=== PATIENT | male | born 1955 | race Two or more races ===

== ENCOUNTER → 2023-07-26 08:52 | Outpatient (REF) | payer MEDICARE, OTHER, SELFPAY | LOC: RCS 08:52 | PROVIDERS: ATTENDING PHYSICIAN Nuclear Medicine Nuclear Cardiology; FAMILY PHYSICIAN Family Medicine | DX: I10 Essential (primary) hypertension (principal); I42.8 Other cardiomyopathies | CPT/HCPCS: 93306 ==

== ENCOUNTER 2024-02-07 10:38 | Emergency (ER) | payer MEDICARE, OTHER, SELFPAY ==
[2024-02-07 10:47] VITALS: BP 168/81
[2024-02-07 10:54] LABS: Glucose - Point of Care 100 mg/dl (70-99)
[2024-02-07 11:06] VITALS: BP 149/98
--- NOTE | 2024-02-07 11:11 | ED.CVA ---
History of Present Illness
General
Chief Complaint: CVA/TIA Symptoms
Source: patient and spouse
Time Seen by Provider: 02/07/24 11:00
Onset of Stroke Symptoms
Onset of symptoms known: Yes
Date of onset of symptoms: 02/07/24
Time of onset of symptoms: 08:00
History of Present Illness
History of Present Illness:
This patient is a 68-year-old male was feeling his usual self when he woke up this morning. He describes taking a 'little pill' before having intercourse. Shortly after, at approximately 8 AM, his noted that he seemed to be forgetful for
recent events. For example, he did not remember was Lindsey, why their son's dog was there, why there were folded close on the bed, why they needed to bring shrimp cocktail to the green party today, etc. There was no noted change in speech or balance.
Now, symptoms are fully resolved. His only noted complaint/finding is that his face is a little warm. He denies dizziness/vertigo, chest pain or pressure, dyspnea, headache, nausea, vomiting, diplopia, change in vision, change in speech,
numbness, tingling, focal weakness, clumsiness, or other complaints.
Past History
Past History
ED Past Medical History: Psychiatric and Other (Cardiomyopathy, CHF, hypertension, A-fib, hyperlipidemia)
Social History
Tobacco: Non-smoker
Alcohol: Daily
Drug: None
Personal:
Living: with family
Phy Exam
Physical Exam
Physical Exam:
GENERAL: Alert , in no apparent distress
EYE: pupils equal and reactive, no photophobia, EOMI, no nystagmus
NECK: Supple, no significant adenopathy.
ENT: o/p clr, mmm.
CARDIAC: Regular rate and rhythm .
LUNGS: Clear breath sounds bilaterally, no acute respiratory distress, no wheezes/rales/rhonchi
ABDOMEN: Soft, without focal tenderness, no r/g, no cvat
NEUROLOGICAL: Alert and oriented, no focal neuro deficits, NIH equal to 0, [id number] normal, motor 5 out of 5, cranial nerves II through XII intact, sensation intact
SKIN: Warm and dry, skin intact.
MUSCULOSKELETAL: No edema, well perfused.
PSYCH: Normal and appropriate interaction.
Course
Orders/Labs/Results
Orders:
Orders
02/07/24 11:10
Electrocardiogram (*1) Urgent
Reason for Study: Other
Other Reason for Exam: stroke symptoms
CT Head W/o Iv Contrast Urgent
Comment:
Reason For Exam: amnesia
Cardiac Monitoring- Treatment ONCE
EKG- Treatment ONCE
02/07/24 11:12
Complete Blood Count/No Diff Urgent
Comprehensive Metabolic Panel Urgent
Abnormal Lab Results
02/07/24 02/07/24
10:53 11:12
MCH 31.6 H pg
(27.0-31.0)
Glucose 111 H mg/dl
(70-99)
POC Glucose 100 H mg/dl
(70-99)
02/07/24 11:12
02/07/24 11:12
Vital Signs
Initial and Last Documented VS:
Initial Vital Signs
Temp Pulse Resp BP Pulse Ox
97.7 F 56 18 168/81 99
02/07/24 10:47 02/07/24 10:47 02/07/24 10:47 02/07/24 10:47 02/07/24 10:47
Last Documented Vital Signs
Temp Pulse Resp BP Pulse Ox
97.7 F 55 20 149/98 96
02/07/24 10:47 02/07/24 11:15 02/07/24 11:15 02/07/24 11:06 02/07/24 11:15
*Critical Care Note
Total Time (30-74mins, 75-104mins- exclusive of procedures): Not Applicable
Update Note
Update Note:
Patient presents to the Emergency Department with ___amnesia
Number and Complexity of Problems Addressed at the Encounter
� Chronic conditions affecting care:
� Acute Exacerbation and/or Progression of Chronic Illness:
� Differential Diagnosis includes: But not limited to TGA, TIA, CVA, etc.
Amount and/or Complexity of Data to be Reviewed and Analyzed
� I performed an independent evaluation of and my interpretation is:
EKG:read by me, sinus bradycardia, no acute ischemia
CT:read by xiang mcelroy
Xrays:
Laboratory Studies:generally unremarkable
Other:
� Review of other/old records reveals: Echo reportNormal left ventricular size and normal systolic function. No regional wall
motion abnormalities are seen. LV ejection fraction is 50 to 55% visually. Mild
left ventricular hypertrophy. Normal diastolic function.
Mildly dilated left atrium.
Since echocardiogram May 2022, there is no significant change
� Clinical information was obtained by an independent historian: who is bedside
� Prescriptions/Medications Considered but not given:
� Further testing considered but not performed:
Risk of Complications and/or Morbidity or Mortality of Patient Management
� Social determinants of health affecting care:
� Discussion with other providers (PCP, Hospitalists, Consultants, etc):
� Escalation of care including admission/observation vs risk of discharge considered:
1226 pm pt remains asx, at baseline, no neuro sxs, no amnesia. S/sxs very suggestive of TGA, and viagra in 'post marketing' reports describe events of TGA associated with use. Hihgly doubt tia/cva...while he does have some risk factors, far less
likely given timing with meds, nl neuro exam,e tc. Case d/w neuro (Yanet) who agrees and recommend lipid panel before d/c.
ED Attending Note
-
Portions of this chart may have been created with voice recognition software.� Occasional wrong word or��sound alike� substitutions may have occurred due to the inherent limitations of voice recognition software.
Discharge Plan
Departure
Patient Disposition: Home (Routine Discharge)
Date of Disposition: 02/07/24
Time of Disposition: 12:28
Patient with high blood pressure during this ER visit?: Yes
Condition: Good
Discharge Problem:
TGA (transient global amnesia)
Instructions: Amnesia, BLOOD PRESSURE
Prescriptions:
No Action
celecoxib [Celebrex] 200 mg Capsule
200 mg PO PRN PRN (Reason: pain)
tramadol 50 mg Tablet
50 mg PO PRN PRN (Reason: pain)
Eliquis 5 mg Tablet
5 mg PO BID Qty: 0 0RF
Rx Instructions:
Restart today- one time dose at 4:30pm, then resume regular schedule on 12/09 in AM
Activity Restrictions/Additional Instructions:
PLEASE SEE YOUR DOCTOR IN CLOSE FOLLOW UP WITHIN A WEEK. IF YOU DEVELOP NUMBNESS, WEAKNESS, CHANGE IN VISION/SPEECH/BALANCE, DEVELOP AMNESIA, OR OTHER WORRISOME SIGNS, GO TO THE ER IMMEDIATELY!
Interventions
Interventions:
*Risk Screen - Suicide Last Done: 02/07/24 11:07
*General Assessment Last Done: 02/07/24 11:07
*Neglect/Abuse Screening Last Done: 02/07/24 11:07
ED- Fall Risk Assessment Last Done: 02/07/24 11:07
*ED COVID-19 Vaccine History Last Done: 02/07/24 11:07
ED- Pulmonary Assessment Last Done: 02/07/24 11:07
ED- Neurological Assessment Last Done: 02/07/24 11:07
ED- Cardiac Assessment Last Done: 02/07/24 11:07
ED Swallowing Screen Last Done: 02/07/24 11:07
Discharge Date and Time
Print Language: MONGOLIAN
[2024-02-07 11:21] LABS: Hematocrit 43.9 % (39.0-52.0); Mean Corp Hgb Conc. 34.2 g/dL (33.0-37.0); Mean Corpuscular Hgb 31.6 pg (27.0-31.0); Mean Corpuscular Volume 92.4 fL (80.0-94.0); Platelet Count 258 10^3/uL (130-400); Red Blood Cell Count 4.75 10^6/uL (4.70-6.10); Red Cell Dist. Width 13.5 % (11.5-14.5); White Blood Cell Count 8.4 10^3/uL (4.8-10.8)
[2024-02-07 11:55] LABS: ALT (SGPT) 26 U/L (0-50); AST (SGOT) 29 U/L (17-59); Albumin 4.4 g/dl (3.5-5.0); Alkaline Phosphatase 94 U/L (38-126); Blood Urea Nitrogen 18 mg/dl (9-20); Calcium 9.2 mg/dl (8.4-10.2); Carbon Dioxide 26 mmol/L (22-30); Chloride 103 mmol/L (98-107); Glucose 111 mg/dl (70-99); Potassium 4.5 mmol/L (3.5-5.1); Sodium 137 mmol/L (135-145); Total Bilirubin 1.1 mg/dl (0.2-1.3); eGFR > 60.00
[2024-02-07 12:45] LABS: HDL Cholesterol 97 mg/dl; LDL Cholesterol, Calculated 82 mg/dl; Total Cholesterol 188 mg/dl (50-199); Triglyceride 48 mg/dl (10-149); Very Low Density Lipoprotein 9 mg/dl (0-30)
== END 2024-02-07 12:50 | disposition home or self-care (01) ==
LOC: EMR 10:38
PROVIDERS: EMERGENCY PHYSICIAN Emergency Medicine; FAMILY PHYSICIAN Family Medicine
DX: G45.4 Transient global amnesia (principal); I42.9 Cardiomyopathy, unspecified; I11.0 Hypertensive heart disease with heart failure; I50.9 Heart failure, unspecified; I48.91 Unspecified atrial fibrillation; E78.00 Pure hypercholesterolemia, unspecified
CPT/HCPCS: 99284; 70450; 80053; 80061; 82962; 85027; 93005

== ENCOUNTER → 2024-07-25 16:54 | Outpatient (REF) | payer MEDICARE, OTHER, SELFPAY | LOC: RAD 16:54 | PROVIDERS: ATTENDING PHYSICIAN Family Medicine; FAMILY PHYSICIAN Family Medicine | DX: J18.9 Pneumonia, unspecified organism (principal) | CPT/HCPCS: 71046 ==

== ENCOUNTER 2024-08-21 11:23 | Day surgery (SDC) | payer MEDICARE, OTHER, SELFPAY ==
--- NOTE | 2024-08-21 13:48 | ITS.CL.CARDI ---
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
Cardioversion
Procedure Report:
Cardioversion Report:
Date of Procedure: 08/21/2024
Procedure: Cardioversion
Indication: Symptomatic atrial flutter
Performing Physician: Geovanny Cardenas MD
Technique: The patient was brought to the holding area. Signed informed consent was obtained. A time out was called and performed. The patient was anesthetized by the anesthesia service. Anticoagulation status was reviewed and appropriate. R2 pads
were placed anteriorly and posteriorly. A 50 J synchronized biphasic shock was given and patient went into atrial fibrillation. Then had 200 J biphasic shock and converted to sinus rhythm.. There were no complications.
Conclusion: Uncomplicated cardioversion from atrial flutter to sinus rhythm.
Recommendation: Routine post cardioversion care. Continue jail anticoagulation.
== END 2024-08-21 14:00 | disposition home or self-care (01) ==
LOC: CATH 11:23
PROVIDERS: ATTENDING PHYSICIAN Internal Medicine Cardiovascular Disease; FAMILY PHYSICIAN Family Medicine; REFERRING PHYSICIAN Nuclear Medicine Nuclear Cardiology
DX: I48.92 Unspecified atrial flutter (principal); I48.91 Unspecified atrial fibrillation; I10 Essential (primary) hypertension; E78.2 Mixed hyperlipidemia; Z79.01 Long term (current) use of anticoagulants; Z85.828 Personal history of other malignant neoplasm of skin
CPT/HCPCS: 92960; 93005

== ENCOUNTER → 2024-09-24 07:00 | Outpatient (REF) | payer MEDICARE, OTHER, SELFPAY | LOC: RCS 07:00 | PROVIDERS: ATTENDING PHYSICIAN Nuclear Medicine Nuclear Cardiology; FAMILY PHYSICIAN Family Medicine | DX: I10 Essential (primary) hypertension (principal); I48.4 Atypical atrial flutter | CPT/HCPCS: 93306 ==

== ENCOUNTER → 2025-01-15 08:38 | Outpatient (REF) | payer MEDICARE, OTHER, SELFPAY ==
[2025-01-15 09:13] LABS: Hematocrit 46.4 % (39.0-52.0); Hemoglobin 15.6 g/dL (13.0-18.0); Mean Corp Hgb Conc. 33.6 g/dL (33.0-37.0); Mean Corpuscular Volume 93.9 fL (80.0-94.0); Nucleated Red Blood Cells % 0 % (-); Platelet Count 318 10^3/uL (130-400); Red Cell Dist. Width 12.9 % (11.5-14.5)
[2025-01-15 09:28] LABS: INR 1.07; PT 13.7 Sec (11.4-14.6)
[2025-01-15 09:29] LABS: ALT (SGPT) 29 U/L (0-50); AST (SGOT) 25 U/L (17-59); Albumin 4.8 g/dl (3.5-5.0); Alkaline Phosphatase 95 U/L (38-126); Blood Urea Nitrogen 18 mg/dl (9-20); Calcium 9.6 mg/dl (8.4-10.2); Carbon Dioxide 24 mmol/L (22-30); Chloride 105 mmol/L (98-107); Glucose 104 mg/dl (70-99); Magnesium 1.9 mg/dl (1.6-2.3); Potassium 4.4 mmol/L (3.5-5.1); Sodium 137 mmol/L (135-145); Total Protein 7.5 g/dl (6.3-8.2); eGFR > 60.00
== END ==
LOC: SDSPAT 08:38
PROVIDERS: ATTENDING PHYSICIAN Internal Medicine Cardiovascular Disease; FAMILY PHYSICIAN Family Medicine; OTHER PHYSICIAN Nuclear Medicine Nuclear Cardiology
DX: I48.0 Paroxysmal atrial fibrillation (principal)
CPT/HCPCS: 36415; 75572; 80053; 83735; 85025; 85610; 86850; 86900; 86901; 93005; Q9967

== ENCOUNTER 2025-01-29 05:57 | Day surgery (SDC) | payer MEDICARE, OTHER, SELFPAY ==
[2025-01-15 08:50] VITALS: BMI 36.2
--- NOTE | 2025-01-15 09:54 | HPS.HSE ---
Family Physician
-
Family Physician: NO INTERVIEW UNKNOWN
Chief Complaint
-
Paroxysmal atrial fibrillation. Atypical atrial flutter.
History of Present Illness
The patient is a 69 year old male presenting today for paroxysmal atrial fibrillation and atypical atrial flutter. The patient reports shortness of breath, mostly when walking up stairs, mild lightheadedness, and disorientation secondary
to his atrial arrhythmias. He previously underwent 2 cardioversions, the last of which occurred in August 2024, and a right atrial flutter ablation in 2021. A recent monitor revealed he's back in atrial flutter after his most recent cardioversion. He
is currently rate controlled without the use of pharmacological therapy. He does report compliance with Eliquis for oral anticoagulation due to a [id number] of 2. It is recommended he proceed at this time with pulmonary vein isolation for further
arrhythmia management. He denies any current complaints today such as chest pain, shortness of breath, palpitations, nausea, vomiting, diarrhea, dizziness, cough, sore throat, or fever.
Medical History
Past Medical History
Past Medical History: Reports Other
Additional Past Medical History:
1. Paroxysmal atrial fibrillation and atypical atrial flutter, status post cardioversion x2 and right atrial flutter ablation 2021; oral anticoagulation with Eliquis.
2. Hypertension.
3. Hyperlipidemia.
4. Sinus bradycardia, asymptomatic.
5. Cardiomyopathy, preserved ejection fraction.
6. Mild left ventricular hypertrophy.
7. Mild valvular disease.
8. Obstructive sleep apnea, noncompliant with device.
9. Diverticulosis.
10. Transient global amnesia, 02/07/2024, medication induced.
11. Peripheral neuropathy.
12. Sciatica.
13. Osteoarthritis, status post right total knee arthroplasty, 2021, left total hip arthroplasty, 2007, and subsequent left total hip revision 2014.
14. Gout.
15. Basal cell carcinoma, nose, status post MOHS.
16. Right detached retina, status post repair.
17. Questionable MRSA of left arm, approximately 18 years ago.
18. Depression.
19. Anxiety.
20. Prediabetes.
21. Obesity, BMI 36.2.
22. Daily alcohol.
Past Surgical History: Reports Other
Additional Past Surgical History:
1. Right atrial flutter ablation.
2. Cardioversion x2.
3. Right total knee arthroplasty.
4. Left total hip arthroplasty.
5. Revision of left total hip arthroplasty.
6. Bilateral carpal tunnel release.
7. Right hammertoe repair.
8. Bilateral inguinal hernia repair.
9. Right detached retina repair.
10. Radiofrequency ablation.
11. MOHS.
12. Tonsillectomy.
13. Colonoscopy x2.
Social History
Tobacco: Non-smoker
Alcohol: Daily (He reports, on average, consuming 2 glasses of wine daily. He has, however, stopped drinking entirely over the last 5 days given his arrhythmia. )
Personal:
Living: Other (He lives with his in a 2 story home. )
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 )
Family History
Family History: Not pertinent
Allergies / Home Medications
Allergy/Medication List:
Home medications:
1. Atorvastatin 20 mg p.o. daily.
2. Eliquis 5 mg p.o. twice a day.
Allergies: No known allergies.
Review of Systems
-
A 12 point ROS was completed and negative except as noted: Yes
Physical Exam
Vital Signs
Blood pressure 157/90. Heart rate 63. Respirations 18. Pulse ox 97% on room air.
Height 5 feet, 7 inches. Weight 104.7 kg. BMI 36.2.
Physical Exam
General: Well Developed, Well Nourished and No Apparent Distress
HEENT: NormoCephalic, Moist mucous membranes, Atraumatic and PERRLA
Respiratory: Clear
Cardiac: Irregular Rhythm
GI: Soft, Non Tender, Non Distended and Other (Obese. )
Musculoskeletal: No Edema and Normal Gait & Station
Skin: Warm and Dry
Neuro: AO x 3 and Nonfocal/grossly intact
Laboratory Results
-
DIAGNOSTIC STUDIES as of 01/15/2025: White blood cell count 6.8. Hemoglobin 15.6. Platelet count 318,000. PT 13.7. INR 1.07. Sodium 137. Potassium 4.4. BUN 18. Creatinine 0.8. Glucose 104. Calcium 9.6. Magnesium 1.9. AST 25. ALT 29. Albumin 4.8.
Type and screen AB positive.
EKG 01/15/2025: Atrial flutter with 4:[address] depression, probably normal.
Chest CT 01/15/2025: Normal, conventional pulmonary venous anatomy. No left atrial filling defect/thrombus is identified.
Echocardiogram 09/24/2024: Compared to a prior transthoracic echocardiogram study from 07/2023, no significant changes are seen. Left ventricular ejection fraction is 51% by Rojas's biplane method of discs. Indexed left atrial volume is mildly
abnormal (35-41 ml/m2). Mild left ventricular hypertrophy. Mild tricuspid regurgitation.
Impression/Plan
-
IMPRESSION/PLAN:
1. Paroxysmal atrial fibrillation and atypical atrial flutter: The patient is in need of pulmonary vein isolation with Dr. Maximiliano Osborn on 01/29/2025. The benefits and risks of the procedure have been explained to the patient. The patient
understands these risks and wishes to proceed. He will not be required to undergo a pre-procedural transesophageal echocardiogram as he has been compliant with his home oral anticoagulation. He is aware to continue Eliquis uninterrupted prior to his
procedure. He will take no medications the morning of his ablation. The patient was further advised to limit his alcohol intake and to seek pulmonary recommendations regarding his sleep apnea to limit his recurrences of his atrial arrhythmias.
[2025-01-29] VITALS (10 sets, daily range): BP systolic 93–140; BP diastolic 59–86; BMI 35.3
--- NOTE | 2025-01-29 07:47 | ITS.CL.ABL ---
Planer Setup Operator - Ablation
Ablation
Procedure Report:
ELECTROPHYSIOLOGIC STUDY AND POSSIBLE ABLATION
DATE: 01/29/25
Primary Care Provider: Katherine Alberts DO
Primary Plastic Welder: Dr Tl Draper
INDICATION:
Symptomatic Atrial Fibrillation.
Persistent
HISTORY: See H and P.
Symptomatic AF, poorly controlled with attempted medical therapy.
He has never previously undergone PVI.
He had right atrial flutter ablation in 2021.
He has not recurred with typical right atrial flutter.
He has developed symptomatic atrial fibrillation and atypical flutter
HAS-BLED: 2
Age
EtOH use
CHADSVASc:
HTN
Age
Contributing factors include untreated sleep apnea
PRESENTING RHYTHM: Atrial tachycardia
HISTORY: See H and P.
Symptomatic AF, poorly controlled with attempted medical therapy.
ANTICOAGULATION: Eliquis 5 mg twice daily
'TIME-OUT': called and confirmed.
SEDATION/ANESTHESIA: provided via the anesthesia department using general anesthesia.
PROCEDURE:
Ultrasound Guidance with real-time visualization of needle insertion and vessel patency performed by me for femoral venous Vascular Access.
Under real-time US guidance, the needle was advanced with negative pressure into the vein. The needle was seen entering the vessel lumen with a good return of dark red flow, the syringe was removed, non-pulsatile, dark red blood low was noted and
the wire was passed without difficulty, then the needle was removed. US confirmed the wire was in the vein, not going into an artery,
Images were taken and saved for the patient's permanent record. Imaging findings typical femoral venous anatomy. Direct visualization of needle puncture into the femoral vein was observed and recorded.
A decapolar CS catheter was placed within the CS for mapping and pacing.
The intracardiac ultrasound catheter was positioned in the RA for continuous intracardiac ultrasound imaging.
Heparin bolus and infusion to target ACT at 300 -350 seconds was administered. Transseptal puncture was performed. This entailed advancing a sheath with dilator into the superior vena cava and withdrawing both (monitoring intracardiac ultrasound,
fluoroscopy and tip pressure) with the tip oriented toward the atrial septum. The fossa ovalis was engaged (indicated by sudden displacement of the sheath tip as well as tenting of the fossa seen on intracardiac ultrasound).
Transseptal puncture was performed. Left atrial catheter position was confirmed by echocardiographic imaging, pressure monitoring (LA mean pressure 15 mm Hg) and fluoroscopy. The sheath was advanced over the dilator and positioned in the left
atrium.
The Sphere 9 multipolar mapping/ablation Sphere-9 catheter was positioned through the transseptal sheath for high density mapping.
Geometry and voltage mapping was performed using the [employer] mapping system for three-dimensional electroanatomical mapping.
Catheter positioning was guided and confirmed using both I.C.E. and fluoroscopy.
High density electroanatomical three-dimensional mapping demonstrated 5 PVs: LSPV, LIPV, RSPV, RMPV, RIPV.
Ablation strategy included PVI as well as mapping for extra PV contributors to atrial fibrillation which would also be targeted if present.
After accomplishing pulmonary venous isolation, mapping identified additional areas likely to be extra PV contributors to atrial fibrillation. These areas demonstrated patchy low voltage as well as complex fractionated electrograms. These areas can
be sites for the formation of rotors which can drive and maintain atrial fibrillation. These areas are known to be significant contributors to initiation and perpetuation of atrial fibrillation.
Additional energy applications/additional ablation sets targeted extra PV contributors to atrial fibrillation.
Targets for additional PFA ablation included:
LA posterior wall targeted with pulsed electric field energy isolating the posterior wall of the left atrium.
This area was ablated using pulsed electric field energy eliminating the extra PV contributors to atrial fibrillation.
He remained in atrial tachyarrhythmia at cycle length 350 ms, regular.
Extensive mapping of the left atrium finds likely passive activation of the left atrium from the right atrium.
The mapping and ablation catheter was then repositioned into the right atrium. High density three-dimensional electroanatomical mapping including activation mapping and entrainment mapping defined typical right atrial counterclockwise flutter.
RF energy was delivered closer to the tricuspid valve and pulsed electric field was delivered closer to the inferior vena cava at the CTI.
With the first RF lesion closure to the tricuspid valve annulus, the tachycardia terminated. Full ablation line at the CTI was created.
Post ablation differential pacing failed bidirectional block at the CTI.
At this point the left atrium was remapped in sinus rhythm finding both entrance and exit block at each of the pulmonary veins and at the posterior wall of the left atrium.
Programmed electrical stimulation was then performed. This included delivery of burst atrial pacing as well as delivery of decremental extrastimuli down to atrial effective refractory period and no sustained arrhythmias could be induced.
I.C.E. :
Pre-Ablation Post-Ablation
LVEF: 50 % 50 %
WMA: none none
Pericardial effusion: none none
LA Pressure (mmHg) 15
COMPLICATIONS:
none
SUMMARY:
- Mapping and ablation to isolate the PVs resulting in electrical isolation of the pulmonary veins
- Additional AF ablation sets X 1 after PVI (LA posterior wall) resulting in elimination of the targeted extra PV contributors to atrial fibrillation (Post wall)
- Mapping and ablation of second tachycardia rendering it non-inducible with programmed electrical stimulation
- 3-D Electroanatomical Mapping
- Intracardiac Ultrasound
- Ultrasound guidance for vascular access
Post ablation, I discussed today's findings and results with the patient's patient's , Talia
RECOMMENDATIONS:
- Observe in monitored bed.
- Maintain oral anticoagulation.
- Continue Cardizem CD 120 mg which is also being used for hypertension control.
- Continue cardiovascular care with Dr Tl Draper, next scheduled appointment is February 18, 2025.
Given [id number] score of 2 recommendation is to maintain long-term oral anticoagulation
There can be consideration for continuous long-term monitoring such as implanted loop recorder to facilitate a strategy of more safely coming off of anticoagulation as long as he maintains sinus rhythm
Copy to:
Primary Care Provider: Katherine Alberts DO
Primary Plastic Welder: Dr Tl Draper
[2025-01-29 08:34] LABS: ACT-LR - POC 248 Seconds (116-155)
[2025-01-29 08:56] LABS: ACT-LR - POC 300 Seconds (116-155)
[2025-01-29 09:23] LABS: ACT-LR - POC 258 Seconds (116-155)
[2025-01-29 09:46] LABS: ACT-LR - POC 311 Seconds (116-155)
[2025-01-29] MEDS: LASIX 20 MG IV (10:35)
--- NOTE | 2025-01-29 15:03 | W.PN.UPDATE ---
Update Note
Progress Note Update
69 yo WM s/p PVI (same day). He denies cp, sob, voiding, shaina diet, EKG SR 1 deg AVB, R groin vascade c/d/i no HT. He did get lasix 20mg iv x 1 for mildly elevated filling pressures. He will resume Eliquis tonight. Activity restrictions reviewed. He
will f/u Dr. Draper in 1 mo. He is for d/c home after 1pm.
== END 2025-01-29 13:35 | disposition home or self-care (01) ==
LOC: CATH 05:57
PROVIDERS: ATTENDING PHYSICIAN Internal Medicine Cardiovascular Disease; FAMILY PHYSICIAN Family Medicine; OTHER PHYSICIAN Nuclear Medicine Nuclear Cardiology
DX: I48.0 Paroxysmal atrial fibrillation (principal); I48.4 Atypical atrial flutter; Z79.01 Long term (current) use of anticoagulants; I10 Essential (primary) hypertension; G47.33 Obstructive sleep apnea (adult) (pediatric); E78.5 Hyperlipidemia, unspecified; I42.9 Cardiomyopathy, unspecified; I44.0 Atrioventricular block, first degree; I47.19 Other supraventricular tachycardia; M10.9 Gout, unspecified; M19.90 Unspecified osteoarthritis, unspecified site; Z68.36 Body mass index [BMI] 36.0-36.9, adult; Z79.899 Other long term (current) drug therapy; E66.9 Obesity, unspecified; Z85.828 Personal history of other malignant neoplasm of skin; Z96.643 Presence of artificial hip joint, bilateral; Z96.651 Presence of right artificial knee joint
CPT/HCPCS: C1733; C1894; C1766; C1730; C1759; 85347; 93005; 93655; 93656; 93657; C1760